=== PATIENT | male | born 1985 | race Two or more races ===

== ENCOUNTER 2016-08-23 07:44 | Emergency (ER) | payer OTHER ==
[2016-08-23 09:06] VITALS: BP 135/71
== END 2016-08-23 09:06 | disposition home or self-care (01) ==
LOC: ED 07:44
DX: S61.011A Laceration without foreign body of right thumb without damage to nail, initial encounter (principal); W45.8XXA Other foreign body or object entering through skin, initial encounter; Y93.89 Activity, other specified; Y92.89 Other specified places as the place of occurrence of the external cause; Y99.8 Other external cause status

== ENCOUNTER 2016-08-29 13:30 | Emergency (ER) | payer OTHER ==
[~2016-08-29] VITALS: Ht 167.6 cm; Wt 79.4 kg
[2016-08-29 13:57] VITALS: BP 138/78
== END 2016-08-29 16:40 | disposition home or self-care (01) ==
LOC: ED 13:30
DX: S61.011D Laceration without foreign body of right thumb without damage to nail, subsequent encounter (principal); W45.8XXD Other foreign body or object entering through skin, subsequent encounter; Y99.8 Other external cause status; Y92.89 Other specified places as the place of occurrence of the external cause

== ENCOUNTER 2016-09-03 12:23 | Emergency (ER) | payer OTHER ==
[~2016-09-03] VITALS: Ht 170.2 cm; Wt 78.9 kg
[2016-09-03 12:25] VITALS: BP 137/69
== END 2016-09-03 12:58 | disposition home or self-care (01) ==
LOC: ED 12:23
DX: S61.011D Laceration without foreign body of right thumb without damage to nail, subsequent encounter (principal); X58.XXXD Exposure to other specified factors, subsequent encounter; Y92.89 Other specified places as the place of occurrence of the external cause; Y99.0 Civilian activity done for income or pay